=== PATIENT | female | born 1940 | race Caucasian/White ===

== ENCOUNTER 2017-04-12 00:02 | Emergency (ER) | payer MEDICARE, BC ==
[2017-04-12] MEDS ORDERED: METHYLPREDNISOLONE PF 125MG/VIAL IVP ONE (00:08)
[2017-04-12] MEDS ORDERED: IPRATROPIUM/ALBUTEROL (0.5MG/3MG) NEB INH ONE (00:08)
--- NOTE | 2017-04-12 00:13 | Emergency Department Record ---
History of Present Illness - General Chief Complaint: Shortness of breath Stated Complaint: JANESSA Time Seen by Provider: 04/12/17 00:08 Source: Patient - History of Present Illness Initial Comments: The patient is a very poor historian. She tells us she developed sudden shortness of breath about 90 minutes before arrival. She called her niece who brought her to the [facility]. Niece states she smokes and has thyroid problems. The patient admits to chest pressure with her JANESSA only when asked. She states she believes in natural medicines and doesn't see a doctor. Denies having cardiac history, but is aware of what nitroglycerine is and that it has helped her in the past. MD Complaint: Chest pain, Shortness of breath - Related Data Home Medications Medication Instructions Recorded Confirmed Last Taken Docusate Sodium [Stool Softener] 100 mg PO DAILY 04/12/17 04/12/17 Unknown Levothyroxine Sodium [Synthroid] 175 mcg PO DAILY 04/12/17 04/12/17 Unknown Pravastatin Sodium [Pravachol] 20 mg PO DAILY 04/12/17 04/12/17 Unknown Allergies Allergy/AdvReac Type Severity Reaction Status Date / Time No Known Drug Allergies Allergy Verified 04/12/17 00:07 Physical Exam - General General Appearance: Alert, Oriented x3, Cooperative, Moderate distress ( breathless speech poor historian medically, "I don't go to the doctor"), Other ( smells of cigarete smoke) - Head Head exam: Normal inspection, Other (very thin hair with scalp visible) - Eye Eye exam: Normal appearance, PERRL Pupils: Normal accommodation - ENT ENT exam: Normal exam, Mucous membranes moist, Normal external ear exam, Normal orophraynx, TM's normal bilaterally Ear exam: Normal external inspection. negative: External canal tenderness Nasal Exam: Normal inspection. negative: Discharge, Sinus tenderness Mouth exam: Normal external inspection, Tongue normal Teeth exam: Normal inspection. negative: Dental caries Throat exam: Normal inspection. negative: Tonsillar erythema, Tonsillar exudate - Neck Neck exam: Normal inspection, Full ROM, Other (trace JVD upright). negative: Lymphadenopathy, Meningismus, Tenderness - Respiratory Respiratory exam: Accessory muscle use, Decreased breath sounds, Rales (at bases bilateral posterior lung field, left greater than right). negative: Respiratory distress - Cardiovascular Cardiovascular Exam: Regular rate, Normal rhythm, Normal heart sounds - GI/Abdominal GI/Abdominal exam: Soft, Normal bowel sounds. negative: Tenderness - Rectal Rectal exam: Deferred - exam: Deferred - Extremities Extremities exam: Normal inspection, Full ROM, Normal capillary refill. negative: Calf tenderness, Pedal edema, Tenderness - Back Back exam: Reports: Normal inspection, Full ROM. Denies: Muscle spasm, Rash noted, Tenderness - Neurological Neurological exam: Alert, CN II-XII intact, Normal gait, Oriented X3, Reflexes normal. negative: Motor sensory deficit - Psychiatric Psychiatric exam: Normal affect, Normal mood - Skin Skin exam: Dry, Intact, Normal color, Warm Course - Reevaluation(s) Reevaluation #1: Breathing has improved. Chest is tight with deep inspiration but not otherwise. Repeat EKG is normal except for sinus tach @ 102. GFR is 36 so will not order CTA. 04/12/17 01:46 04/12/17 01:52 Reevaluation #2: Patient is requesting to be transferred to [facility] for her VQ. Spoke with Dr. Devine emergency attending who accepts patient in transfer for VQ scan. 04/12/17 02:40 Medical Decision Making - Management Options MDM Management: Additional Work-up Planned (e.g. ADM/Transfer/OP Study) ( Transfer to [facility] for VQ scan) - Data Complexity MDM Data: Labs Ordered and/or Reviewed, X-Ray Ordered and/or Reviewed (CXR two view Negative for acute abnormality per ED physician), EKG Ordered and/or Reviewed - Lab Data Result diagrams: 04/12/17 00:23 04/12/17 00:23 - EKG Data -: EKG Interpreted by Me (#1 EKG with ? 1mm ST elevation but baseline is wandering, repeat is normal.) EKG: No Acute Changes (EKG #2 sinus tach, no acute abnormality. No prior.) Disposition Disposition: Transfer Clinical Impression: Acute dyspnea, Chest heaviness Disposition: Acute Care Hospital Transfer Transfer To: [facility] Reason For Transfer: Elevated D dimer, needs VQ due to renal function Accepting Physician: Dr. Devine Time Discussed w/Accepting Physician: 02:43 Condition: (2) Stable Forms: Patient Portal Access Quality - Quality Measures Quality Measures: N/A - Blood Pressure Screening Does Patient Have Any of the Following: No Blood Pressure Classification: Pre-Hypertensive BP Reading Systolic Measurement: 139 Diastolic Measurement: 65 Screening for High Blood Pressure: < Pre-Hypertensive BP, F/U Documented > [ G8950] Pre-Hypertensive Follow-up Interventions: Follow-up with rescreen every year.
[2017-04-12 00:31] LABS: HEMATOCRIT 44.6 % (35.0-47.0); HEMOGLOBIN 14.5 gm/dl (11.6-16.0); MEAN CELL VOLUME 93.1 fl (81-97); MEAN CORPUSCULAR HEMOGLOBIN 30.3 pg (27-33); MEAN CORPUSCULAR HGB CONC 32.5 g/dl (32-36); MEAN PLATELET VOLUME 10.3 fl (7.4-10.4); PLATELET COUNT 231 K/uL (130-400); RED BLOOD COUNT 4.79 M/uL (3.80-5.40); WHITE BLOOD COUNT W/O DIFF 12.2 K/uL (4.2-12.2)
[2017-04-12] MEDS ORDERED: ASPIRIN 81 MG CHEWABLE TABLET PO ONE (01:00)
[2017-04-12] MEDS ORDERED: NITROGLYCERIN 0.4MG SL TABLET #25 BTL SL ONE (01:01)
[2017-04-12 01:14] LABS: BILIRUBIN,TOTAL 0.3 mg/dL (0.2-1.0); CREATININE 1.5 mg/dL (0.5-0.9)
[2017-04-12 01:15] LABS: TOTAL PROTEIN 7.2 g/dL (6.6-8.7)
[2017-04-12 01:17] LABS: NTpro B-NATRIURETIC PEPTIDE 315.6 pg/mL (<450)
[2017-04-12 01:20] LABS: ALB/GLOB RATIO 1.3 (1.1-1.8); ALBUMIN 4.1 g/dL (4.0-5.0)
[2017-04-12 02:09] LABS: URINE APPEARANCE CLEAR; URINE BILIRUBIN NEGATIVE (NEGATIVE); URINE BLOOD MODERATE (NEGATIVE); URINE COLOR YELLOW; URINE GLUCOSE (UA) NEGATIVE (NEGATIVE); URINE KETONE NEGATIVE (NEGATIVE); URINE LEUKOCYTE ESTERASE NEGATIVE (NEGATIVE); URINE NITRITE NEGATIVE (NEGATIVE); URINE PROTEIN NEGATIVE (NEGATIVE); URINE UROBILINOGEN 0.2 E.U./dL (0.20 - 1.00)
[2017-04-12 02:20] LABS: URINE WBC 0 - 2 (0-2/hpf)
--- NOTE | 2017-04-13 08:02 | RADIOLOGY REPORT ---
EXAM: CHEST, TWO VIEWS HISTORY: DIFFICULTY IN BREATHING AND CHEST PAIN. TECHNIQUE: PA and lateral views of the chest were obtained. Comparison: None. FINDINGS: The heart size is normal. Mild calcification of the aorta. The lungs appear hyperinflated suggesting COPD. No definite acute infiltrate is seen. No pleural effusion or pneumothorax evident. Hypertrophic spurring in the spine. IMPRESSION: 1. HYPERINFLATION SUGGESTING COPD. 2. HYPERTROPHIC SPURRING IN THE SPINE. 3. NO DEFINITE ACUTE INFILTRATE SEEN. JOB NUMBER: [id number] [facility]
== END 2017-04-12 03:00 | disposition short-term general hospital (02) ==
LOC: ER 00:02
DX: R07.89 Other chest pain (principal); R06.00 Dyspnea, unspecified; R79.89 Other specified abnormal findings of blood chemistry; F17.210 Nicotine dependence, cigarettes, uncomplicated
CPT/HCPCS: 71046; 80053; 81001; 83880; 84443; 84484; 85027; 85379; 93005; 93010; 94640; 96374; 99285; J2930

== ENCOUNTER 2017-06-12 12:20 | Day surgery (SDC) | payer BC ==
[2017-06-12] MEDS ORDERED: LIDOCAINE 2% MDV (20MG/ML) 20ML VIAL IV ONE (12:21)
[2017-06-12] MEDS ORDERED: PROPOFOL 10 MG/ML VIAL IV ONE (12:21)
--- NOTE | 2017-06-16 07:40 | Operative Note ---
DATE OF SURGERY: 06/12/2017 REQUESTING PHYSICIAN: Lashonda Pang DO SURGEON: Jamie Diez MD POSTOPERATIVE DIAGNOSES: 1. Left-sided colonic diverticulosis. 2. Otherwise normal colon. OPERATION: COLONOSCOPY and exam. REASON FOR PROCEDURE: This is a 77-year-old female with history of colon polyp who presented for surveillance colonoscopy. SEDATION: Sedation as per anesthesia. Pulse oximetry was monitored throughout the duration of the procedure to maintain O2 saturation of 90% or greater. Supplemental oxygen was administered via nasal cannula. Cardiac and vital signs were monitored throughout the duration of the procedure and they were stable. PROCEDURE: Description of the procedure of colonoscopy, risks, and alternatives to the procedure including the risk of bleeding and perforation among others were explained to the patient who voiced understanding and agreed to have the procedure done. A physical examination was performed and the patient was found stable for sedation. The patient was then placed in the left lateral position and sedation was initiated. Digital rectal exam was performed and showed small external hemorrhoids with no palpable rectal masses. A lubricated Olympus PCF-180AL colonoscope was then inserted into the rectum under direct visualization and was advanced to the cecum without difficulty. The ileocecal valve and appendiceal orifice were identified and photographed. The colonic mucosa was carefully examined upon insertion of the colonoscope. There were scattered diverticula noted in the sigmoid and descending colon. There were no other lesions noted. The colonoscope was then withdrawn while carefully examining the colonic mucosal surfaces. No other lesions were noted. In the rectum, retroflexion was performed and grade 1 internal hemorrhoids were noted. The colonoscope was then withdrawn and the procedure was terminated. The patient tolerated the procedure well without any complications. The patient remained with stable vital signs and was sent to the recovery room. PLAN AND RECOMMENDATIONS: 1. The patient is to be on a high-fiber diet. 2. The patient is to have repeat colonoscopy as needed. Thank you for allowing me to participate in the care of this patient. CC: Lashonda Pang DO [facility]ITAL[facility]
== END 2017-06-12 14:08 | disposition home or self-care (01) ==
LOC: HOP 12:20
PROVIDERS: ATTEND Internal Medicine Gastroenterology
DX: Z12.11 Encounter for screening for malignant neoplasm of colon (principal); Z86.010 Personal history of colon polyps; J44.9 Chronic obstructive pulmonary disease, unspecified; E78.00 Pure hypercholesterolemia, unspecified; E03.9 Hypothyroidism, unspecified; Z72.0 Tobacco use; K57.30 Diverticulosis of large intestine without perforation or abscess without bleeding
CPT/HCPCS: 00812; G0121

== ENCOUNTER 2018-11-18 10:25 | Emergency (ER) | payer BC ==
[2018-11-18] MEDS ORDERED: MORPHINE SULFATE 10MG/1ML **1ML VIAL IVP ONE (10:51)
[2018-11-18] MEDS ORDERED: ONDANSETRON HCL IV 4 MG/2 ML VIAL IVP ONE (10:51)
--- NOTE | 2018-11-18 11:01 | Emergency Department Record ---
History of Present Illness - General Chief complaint: Vomiting Stated complaint: NAUSEA Time Seen by Provider: 11/18/18 10:31 Source: Patient, Family Mode of Arrival: Wheelchair Limitations: No limitations - History of Present Illness Initial comments: The patient is here due to not feeling well for the last 2 hours. She woke up at 9am with nausea and vomiting. The symptoms have persisted since waking up. She also feels like her legs are weak and her balance is off. Additionally she has had some SOB but no significant CP, back pain or AP. The patient has had a hx of multiple abdominal surgeries but no cardiac hx. She also is not on any blood thinners. MD complaint: Nausea, Vomiting Onset/Timin -: Hour(s) Improves with: None Worsens with: None - Related Data Home Medications Medication Instructions Recorded Confirmed Last Taken Cholecalciferol (Vitamin D3) 400 unit PO DAILY 11/18/18 11/18/18 11/18/18 [Vitamin D3] Previous Rx's Medication Instructions Recorded Cephalexin [Keflex] 500 mg PO TID #21 cap 11/18/18 Allergies Allergy/AdvReac Type Severity Reaction Status Date / Time No Known Drug Allergies Allergy Verified 11/18/18 10:30 Travel Screening - Travel/Exposure Within Last 30 Days Have you traveled within the last 30 days?: No - Travel/Exposure Within Last Year Have you traveled outside the [place] in the last year?: No - Additonal Travel Details Have you been exposed to anyone with a communicable illness?: No - Travel Symptoms Symptom Screening: None Review of Systems Constitutional: Denies: Chills, Fever Eyes: Denies: Eye discharge ENT: Denies: Congestion Respiratory: Reports: Dyspnea. Denies: Cough Cardiovascular: Denies: Arrhythmia, Chest pain Endocrine: Reports: Fatigue Gastrointestinal: Reports: Nausea, Vomiting. Denies: Diarrhea Genitourinary: Denies: Dysuria Musculoskeletal: Denies: Arthralgia Skin: Denies: Bruising Past Medical History - SOCIAL HISTORY Smoking Status: Current every day smoker Alcohol Use: None Drug Use: None - RESPIRATORY Hx Respiratory Disorders: Yes Hx COPD: Yes - CARDIOVASCULAR Hx Cardio Disorders: Yes Comment:: high cholesterol - NEURO Hx Neuro Disorders: No - GI Hx GI Disorders: Yes Hx Diverticulitis: Yes Hx Reflux: Yes Hx of Polyps: Yes Comment:: constipation - Hx Genitourinary Disorders: Yes Hx Bladder Problem: Yes (bladder prolapse w/incontinence) - ENDOCRINE Hx Endocrine Disorders: Yes Hx Thyroid Disease: Yes - MUSCULOSKELETAL Hx Musculoskeletal Disorders: Yes Hx Fibromyalgia: Yes - PSYCH Hx Psych Problems: No - HEMATOLOGY/ONCOLOGY Hx Hematology/Oncology Disorders: Yes Hx Anemia: Yes (many years ago) Family Medical History Any Significant Family History?: Yes Hx Cancer: Mother Hx Diabetes: Mother Hx Heart Disease: Mother Hx Resp Disorders: Father Physical Exam - General General Appearance: Alert, Oriented x3, Cooperative, Mild distress (due to nausea and vomiting.) - Eye Eye exam: Normal appearance, PERRL - ENT Throat exam: Normal inspection. negative: Tonsillar erythema, Tonsillar exudate - Neck Neck exam: Normal inspection, Full ROM. negative: Tenderness - Respiratory Respiratory exam: Normal lung sounds bilaterally - Cardiovascular Cardiovascular Exam: Regular rate, Normal rhythm, Normal heart sounds - GI/Abdominal GI/Abdominal exam: Soft, Normal bowel sounds. negative: Guarding, Pulsatile mass, Rebound, Rigid, Tenderness - Extremities Extremities exam: Normal inspection, Full ROM, Normal capillary refill. negative: Tenderness - Neurological Neurological exam: Abnormal gait (The patient feels her legs are to weak for walking presently.), Alert (The patient has a normal speech pattern with no aphasia.), CN II-XII intact, Oriented X3, Reflexes normal, Other (Neg Drift exam. The patient's finger to nose testing is normal bilaterally.). negative: Altered, Motor sensory deficit, Normal gait - Psychiatric Psychiatric exam: Anxious - Skin Skin exam: negative: Rash Course Vital Signs 11/18/18 10:34 Temperature 97.3 F L Pulse Rate 85 Respiratory 20 Rate Blood Pressure 146/109 Pulse Ox 94 L - Reevaluation(s) Reevaluation #1: The patient is doing a lot better at this time. She states her nausea is much better and she is resting comfortably in no pain. 11/18/18 12:08 Reevaluation #2: The patient is doing better at this time. She clearly has a nonfocal neuro exam. I did attempt to get the patient up walking and she is able to stand but feels her legs are weak. She did lay back down on the bed on her own due to the weakness. The patient's speech is normal and clear and without any slurring. 11/18/18 12:25 Reevaluation #3: The patient is doing a lot better at this time. She states the nausea is gone and she denies any AP, CP, back pain or leg weakness. She is up walking normally with a normal gait and no weakness. I did discuss the need to keep the patient on oral Abx and nausea medicine and she is to F/U with her PCP next week. The patient is to return to the ER for any worsening symptoms. 11/18/18 13:32 Medical Decision Making - Data Complexity MDM Data: Labs Ordered and/or Reviewed, X-Ray Ordered and/or Reviewed, EKG Ordered and/or Reviewed - Lab Data Result diagrams: 11/18/18 10:40 11/18/18 10:40 - EKG Data -: EKG Interpreted by Me EKG: No Acute Changes, Normal EKG - Radiology Data Radiology results: Report reviewed (Xrays all neg for acute process or abnormalities. ( Head and Abd CT and CXR)) Disposition Disposition: Discharge Clinical Impression: Vomiting alone Disposition: Home, Self-Care Condition: (2) Stable Instructions: Acute Nausea and Vomiting (ED) Additional Instructions: Please continue your regular medicines and use the Zofran for nausea and take the Keflex for the UTI. Please see your family doctor for recheck on Thursday. Re turn to the ER for any worsening symptoms. Prescriptions: Cephalexin [Keflex] 500 mg PO TID #21 cap Forms: Patient Portal Access Time of Disposition: 13:36 Quality - Quality Measures Quality Measures: N/A - Blood Pressure Screening View Details: Yes Does Patient Have Any of the Following: No Blood Pressure Classification: Normal BP Reading Systolic Measurement: 100 Diastolic Measurement: 53 Screening for High Blood Pressure: < Normal BP, F/U Not Required > [G8783]
[2018-11-18 11:12] LABS: ABSOLUTE NEUTROPHIL COUNT 4.91; BASO % 0.5 % (0-6); EOS % 1.6 % (0-6); HEMATOCRIT 45.9 % (35.0-47.0); HEMOGLOBIN 15.2 gm/dl (11.6-16.0); LYMPH % 46.3 % (16-45); MEAN CELL VOLUME 92.2 fl (81-97); MEAN CORPUSCULAR HEMOGLOBIN 30.5 pg (27-33); MEAN CORPUSCULAR HGB CONC 33.1 g/dl (32-36); MONO % 6.6 % (0-9); PLATELET COUNT 283 K/uL (130-400); RED BLOOD COUNT 4.98 M/uL (3.80-5.40); RED CELL DISTRIBUTION WIDTH 14.2 % (11.5-14.5); WHITE BLOOD COUNT W/O DIFF 10.9 K/uL (4.2-12.2)
[2018-11-18 11:22] LABS: BLOOD UREA NITROGEN 19 mg/dL (8-23); CREATININE 1.2 mg/dL (0.5-0.9); EST GLOMERULAR FILTRATION RATE 46 mL/min
[2018-11-18 11:23] LABS: PARTIAL THROMBOPLASTIN TIME 24.9 SECONDS (24.5-39.1); PROTHROMBIN TIME (PATIENT) 10.2 SECONDS (9.5-12.1)
[2018-11-18 11:25] LABS: GLUCOSE,RANDOM 109 mg/dL (74-109)
[2018-11-18 11:28] LABS: CREATINE PHOSPHOKINASE 35 U/L (26-192)
[2018-11-18 11:31] LABS: CKMB 1.3 ng/mL (<3.77)
[2018-11-18] MEDS ORDERED: 0.9 % SODIUM CHLORIDE 1,000 ML BAG IV ONE (11:56)
[2018-11-18] MEDS ORDERED: DIPHENHYDRAMINE HCL 50 MG/ML VIAL IVP ONE (12:03)
[2018-11-18] MEDS ORDERED: METOCLOPRAMIDE HCL 10 MG/2 ML VIAL IVP ONE (12:03)
[2018-11-18 12:55] LABS: URINE APPEARANCE CLEAR; URINE BILIRUBIN NEGATIVE (NEGATIVE); URINE BLOOD MODERATE (NEGATIVE); URINE COLOR YELLOW; URINE GLUCOSE (UA) NEGATIVE (NEGATIVE); URINE KETONE NEGATIVE (NEGATIVE); URINE LEUKOCYTE ESTERASE MODERATE (NEGATIVE); URINE NITRITE POSITIVE (NEGATIVE); URINE PROTEIN NEGATIVE (NEGATIVE); URINE UROBILINOGEN 0.2 E.U./dL (0.20 - 1.00)
[2018-11-18 13:02] LABS: URINE BACTERIA 4+; URINE EPITHELIAL CELLS 0 - 2 (FEW); URINE WBC 21 - 35 (0-2/hpf)
[2018-11-18] MEDS ORDERED: CEFTRIAXONE 1GM/50ML BAG 1 GM/50 ML BAG IVPB ONE (13:03)
--- NOTE | 2018-11-19 05:25 | CT SCAN REPORT ---
EXAM: CT SCAN HEAD WO CONTRAST HISTORY: HEADACHE WITH DIZZINESS, NAUSEA, AND VOMITING. CHILLS AND SHORTNESS OF BREATH. TECHNIQUE: Standard CT imaging of the brain was performed in the axial plane without contrast. Additional coronal and sagittal reformatted images were also performed. HAND DOMINANCE: Right. ENCOUNTER: Not applicable. COMPARISON: None. FINDINGS: The brain volume is normal for the patient's age. A craniotomy defect is noted within the right temporal region. The ventricles and subarachnoid spaces are normal. There are moderate chronic small vessel ischemic changes within the periventricular and subcortical white matter of both cerebral hemispheres. There is no mass, mass effect, intracranial hemorrhage, visible acute infarct, or abnormal extra-axial fluid. There is no skull fracture. There is an old healed fracture involving the medial wall of the right orbit. The orbits are otherwise unremarkable. Chronic mucosal thickening and calcification are noted within the right sphenoid sinus consistent with chronic sinusitis. A small air-fluid level is present within the left sphenoid sinus, which may indicate superimposed acute sinusitis. The remaining sinuses are clear. Postsurgical changes are present within the right mastoid. The mastoids are otherwise unremarkable. IMPRESSION: 1. NO ACUTE INTRACRANIAL ABNORMALITY. 2. MODERATE CHRONIC SMALL VESSEL ISCHEMIC CHANGES. 3. SUSPECT ACUTE ON CHRONIC SPHENOID SINUSITIS. 4. POSTSURGICAL CHANGES ABOVE. JOB NUMBER: [id number] [facility]
--- NOTE | 2018-11-19 05:37 | CT SCAN REPORT ---
EXAM: CT SCAN ABDOMEN/PELVIS WO CONTRAST HISTORY: ABDOMINAL PAIN WITH NAUSEA AND VOMITING. CHILLS. TECHNIQUE: Standard CT imaging of the abdomen and pelvis was performed without contrast. Additional coronal and sagittal reformatted images were also performed. COMPARISON: None. FINDINGS: There is minor atelectasis or scarring at both lung bases. The lung bases are otherwise clear. There are minor coronary artery calcifications. There is a tiny hiatal hernia. The unenhanced liver parenchyma appears normal. The gallbladder is surgically absent. The biliary tree, pancreas, spleen, and adrenal glands are normal. Vascular calcifications are noted at the splenic hilum. A 1 cm cyst is present within the posterior cortex of the left kidney. There is the suggestion for a tiny cyst as well at the inferior pole of the right kidney. The kidneys and ureters are otherwise normal. There is no hydronephrosis or urinary tract calculus. Moderate atherosclerotic changes are present within the aorta. There is no aneurysm. There is no retroperitoneal lymphadenopathy. There are numerous diverticula scattered throughout the colon. These are greatest within the sigmoid region. There is no evidence for acute diverticulitis. Moderate stool is present within the colon. The large and small bowel loops are otherwise normal. There is no pneumoperitoneum or ascites. The uterus is surgically absent. The urinary bladder is normal. Postsurgical changes are present within the abdominal wall of the right upper quadrant. The abdominal wall is otherwise normal. Degenerative changes are present within the spine. There are no acute osseous abnormalities. IMPRESSION: 1. NO ACUTE INTRA-ABDOMINAL PATHOLOGY. 2. EXTENSIVE COLONIC DIVERTICULOSIS WITH NO DIVERTICULITIS. 3. MODERATE STOOL WITHIN THE COLON. 4. TINY HIATAL HERNIA. 5. ADDITIONAL CHRONIC FINDINGS ABOVE. JOB NUMBER: [id number] [facility]
--- NOTE | 2018-11-19 05:41 | RADIOLOGY REPORT ---
EXAM: CHEST 2 VIEWS HISTORY: SHORTNESS OF BREATH AND WEAKNESS. CHILLS. NAUSEA AND VOMITING. TECHNIQUE: AP and lateral upright views of the chest were obtained. COMPARISON: April 12, 2017. FINDINGS: The heart, mediastinum, and pulmonary vasculature are normal. Minor chronic-appearing interstitial changes are present at the lung base and are unchanged from the prior study. There are no visible acute infiltrates or effusions. There is no pneumothorax. Degenerative changes are present within the spine and shoulders. IMPRESSION: NO ACUTE INTRATHORACIC PATHOLOGY. JOB NUMBER: [id number] [facility]
== END 2018-11-18 14:05 | disposition home or self-care (01) ==
LOC: ER 10:25
DX: R11.2 Nausea with vomiting, unspecified (principal); R53.1 Weakness; R06.02 Shortness of breath; R26.2 Difficulty in walking, not elsewhere classified; J44.9 Chronic obstructive pulmonary disease, unspecified; F17.210 Nicotine dependence, cigarettes, uncomplicated
CPT/HCPCS: 99284 ×2; 96365; 96375; 96361; 82550; 85025; 85730; 85610; 82553; 80048; 81001; 84484; 71046; 70450; 74176; 93005; 93010; J2405; J0696; J1200; J2765; J7030